=== PATIENT | female | born 1980 | race Caucasian/White ===

== ENCOUNTER 2016-12-23 11:55 | Emergency (ER) | payer OTHER ==
[~2016-12-23] VITALS: Ht 170.2 cm; Wt 111.4 kg
[2016-12-23 11:59] VITALS: BP 158/102; PULSE 65; RESP 18; O2SAT 99
--- NOTE | 2016-12-23 12:09 | ED.REPORT ---
HPI-Chest Pain Under 40 Date of Service Dec 23, 2016 ED Provider: Emir Costa MD Pt is a 36 year old female who presents to the ED c/o constant right-sided chest pain that radiates down her right arm onset three days. She states that she was flying on an airplane three days ago, and when she descended, she felt immediate nausea and dizziness, and hasn't felt well since. Additional symptoms include non-productive cough, intermittent nausea, dizziness, and pain and swelling in her left leg that is old from a previous injury. Patient denies SOB , vomiting, or lightheadedness. She has taken ibuprofen and aleve for her symptoms, with the last dose at 0900 today. Nursing Notes Stated Complaint: PAIN IN CHEST,NAUSEA,DIZZY Chief Complaint: Chest Pain-Non Cardiac Nature Nursing Notes Reviewed: Yes Allergies: Coded Allergies: No Known Allergies (Unverified , 03/04/15) Scheduled PRN Ibuprofen (Ibuprofen) 800 Mg Tablet 800 MG PO TID PRN PRN For Pain General Time Seen by MD: 12:05 Chief Complaint Chest pain Hx Obtained From: Patient Arrived By: Walk-in Sudden in Onset?: No Onset Occurred: 3 days ago Symptom Duration: Constant Quality: Painful Severity: Current: Mild Severity: Maximum: Moderate Recent Healthcare: No recent doctor visit, No recent hospitalization Similar Sx Previous: No Past Medical History Past Medical History Hemorrhagic ovarian cyst Gets monthly head injections for alopecia Past Surgical History Reports: Tubal ligation Smoking History Current Every Day Smoker Ambulatory Status Independent Review of Systems Respiratory: Reports: Non-productive cough, Denies: Shortness of breath Cardiovascular: Reports: Chest pain (right-sided) GI: Reports: Nausea (intermittent), Denies: Vomiting Musculoskeletal: Reports: Extremity pain (left leg s/p old injury ), Extremity swelling (left leg) Neurologic: Reports: Dizziness, Denies: Lightheaded Complete sys rev & neg: except as marked. Physical Exam Initial Vital Signs Vital Signs (First) Date Time Temp Pulse Resp B/P Pulse Ox O2 Delivery O2 Flow Rate FiO2 12/23/16 11:59 36.7 65 18 158/102 99 Room Air Initial VS: Reviewed Head / Eyes: Atraumatic, Normocephalic Neck: Supple, Full range of motion Extremities: Vascular intact, Neuro intact, No swelling, No tenderness Skin: Warm, Dry, No cyanosis Neurologic: Alert, Oriented, Nonfocal Psychiatric: Mood/affect normal, Behavior normal, Normal thought content General/Constitutional: Awake, Alert Respiratory / Chest: Atraumatic, Breath sounds NL, Breath sounds = bilat, No respiratory distress Cardiovascular: Heart rate NL, Regular rhythm, Heart sounds NL, No murmurs No lower leg edema Interpretation & Diagnostics Lab Results Interpretation Result Diagram: 12/23/16 1230 12/23/16 1230 Test 12/23/16 12:30 White Blood Count 10.9th/mm3 (3.8-10.1) Red Blood Count 4.03mil/mm3 (3.90-5.20) Hemoglobin 12.3g/dL (12.0-15.6) Hematocrit 36.3% (35.0-46.0) Mean Corpuscular Volume 90.1fL (81-100) Mean Corpuscular Hemoglobin 30.5pg (27.0-35.0) Mean Corpuscular Hemoglobin Concent 33.9% (32.0-37.0) Red Cell Distribution Width 12.4% (12.3-15.4) Platelet Count 363bil/L (150-400) Neutrophils (%) (Auto) 45.7% (40-74) Lymphocytes (%) (Auto) 36.1% (14-46) Monocytes (%) (Auto) 6.0% (4-12) Eosinophils (%) (Auto) 11.6% (0-5) Basophils (%) (Auto) 0.2% (0-3) D-Dimer < 0.50mg/L FEU (<0.50) Sodium Level 137mEq/L (134-144) Potassium Level 4.2mEq/L (3.5-5.2) Chloride Level 101mEq/L (97-108) Carbon Dioxide Level 23mmol/L (18-29) Blood Urea Nitrogen 16mg/dL (6-20) Creatinine 0.77mg/dL (0.57-1.00) Estimat Glomerular Filtration Rate 121mL/min (>59) Glucose Level 90mg/dL (60-99) Calcium Level 8.6mg/dL (8.5-10.1) Magnesium Level 1.9mg/dL (1.6-2.6) Total Bilirubin 0.2mg/dL (0.0-1.2) Aspartate Amino Transf (AST/SGOT) 15U/L (0-50) Alanine Aminotransferase (ALT/SGPT) 8U/L (0-32) Alkaline Phosphatase 54U/L (25-150) Troponin T < 0.010ug/L (0.0-0.011) Total Protein 6.8g/dL (6.4-8.4) Albumin 4.1g/dL (3.4-5.0) Hold Collins Top Tube Received (Received) ECG Interpretation ECG Interpretation: Sinus rhythm, rate 63 T wave inversions isolated in v1 and V3 No previous for comparison Time: 12:44 Interpreted by: ED physician X-Ray Chest Interpretation Chest Xray Interpretation: IMPRESSION: 1. No acute cardiopulmonary disease. Dictated by: Deion Portillo M.D. on 12/23/2016 at 13:42 Approved by: Deion Portillo M.D. on 12/23/2016 at 13:42 View: Portable, 1 view Interpretation / Wet Read by: Interpret - Radiologist Re-Eval/Medical Decision Med Decision/Clinical Course 36-year-old female complaining of right-sided chest pain 3 days. Vital signs are stable. It is mildly reproducible on exam. D-dimer is negative. Troponins are negative. No EKG changes. Likely musculoskeletal. Improved with Toradol. Discharged home with return precautions. Source of Hx: Old records Re-Evaluation/Progress : Time of Eval: 13:56 Patient Status: Condition improved Re-Evaluation/Progress Note: Patient rechecked. Discussed plan for discharge. Patient agrees and understands plan. Gave all RTER and follow-up directions. All questions addresssed at this time. Counseled Regarding: Diagnosis, Lab results, Need for follow-up, When/why to return to ED Discharge & Departure Primary Impression: Non-cardiac chest pain Disposition: Home Discharge Condition All VS Reviewed: Yes Condition: Stable Patient Instructions: Noncardiac Chest Pain (ED) Additional Instructions: Thank you for entrusting us with your care today. Your labs, examination, and imaging results were all reassuring. There is no apparent dangerous cause for your symptoms at this time. You can take ibuprofen/tylenol for your pain as needed, as well as ice/heat. Please call today to schedule a follow-up appointment with your primary care doctor in 2-3 days for a recheck. Please return to the emergency department if you are having any new or worsening symptoms, such as increasing shortness of breath, worsening chest pain , lightheadedness, numbness/tingling, or weakness. Referrals: Josselin Diaz (PCP) Scribe Attestation Portions of this note were transcribed by Lynne Miguel. I, Dr. Costa personally performed the history, physical exam and medical decision-making; I reviewed and confirmed the accuracy of the information in the transcribed note. copies to: Josselin Diaz Ben M MD Dec 23, 2016 12:09 Lynne Miguel Dec 23, 2016 12:31
[2016-12-23] MEDS ORDERED: Ketorolac 15 mg/mL Inj IVPUSH ONE (12:35)
[2016-12-23 12:47] LABS: BASOPHILS % (AUTO) 0.2 % (0-3); EOSINOPHILS % (AUTO) 11.6 % (0-5); Mean Corpuscular Hemoglobin 30.5 pg (27.0-35.0); Mean Corpuscular Volume 90.1 fL (81-100); NEUTROPHILS % (AUTO) 45.7 % (40-74); Platelet Count 363 bil/L (150-400)
[2016-12-23 13:25] LABS: Magnesium 1.9 mg/dL (1.6-2.6)
[2016-12-23 13:27] LABS: TROPONIN T < 0.010 ug/L (0.0-0.011)
--- NOTE | 2016-12-23 13:45 | DRSVH ---
PROCEDURE: X-RAY CHEST ONE VIEW, PORTABLE ([id number]) INDICATIONS: chest pain TECHNIQUE: One view of the chest was acquired. COMPARISON: None. FINDINGS: Surgical changes and devices: None. Lungs and pleura: No pleural effusions or pneumothorax. Lungs are clear. Mediastinum: Mediastinal contours appear normal. Heart size is normal. Bones and chest wall: No suspicious bony lesions. Overlying soft tissues appear unremarkable. IMPRESSION: 1. No acute cardiopulmonary disease. Dictated by: Deion Portillo M.D. on 12/23/2016 at 13:42 Approved by: Deion Portillo M.D. on 12/23/2016 at 13:42
[2016-12-23 13:55] VITALS: BP 141/83; PULSE 64; RESP 17; O2SAT 97
[2016-12-23] MEDS ORDERED: IBUP800T28 PO (14:00)
[2016-12-23 14:11] VITALS: BP 141/83; PULSE 64; RESP 17; O2SAT 97
== END 2016-12-23 14:11 | disposition home or self-care (01) ==
LOC: SED 11:55
DX: R07.89 Other chest pain (principal); R05 Cough; R42 Dizziness and giddiness; R11.0 Nausea; M79.89 Other specified soft tissue disorders; F17.200 Nicotine dependence, unspecified, uncomplicated
CPT/HCPCS: 36415; 71010; 80053; 83735; 84484; 85025; 85378; 93005; 96374; 99285; J1885